=== PATIENT | male | born 1965 | race Caucasian/White ===

== ENCOUNTER 2022-08-13 14:35 | Emergency (ER) | payer OTHER ==
[~2022-08-13] VITALS: Ht 165.1 cm; Wt 77.1 kg
[2022-08-13] MEDS ORDERED: LACTULOSE10 GM/15 M PO (17:57)
== END 2022-08-13 18:09 | disposition home or self-care (01) ==
LOC: ER 14:35
DX: K59.00 Constipation, unspecified (principal)